=== PATIENT | female | born 1975 | race Caucasian/White ===

== ENCOUNTER 2025-02-06 00:54 | Emergency (ER) | payer MEDICAID ==
[~2025-02-06] VITALS: Ht 180.3 cm; Wt 74.8 kg
[2025-02-06] MEDS ORDERED: HALOPERIDOL LACTATE INJ 5 MG/ML VIAL ONE (01:22)
[2025-02-06] MEDS: HALOPERIDOL LACTATE INJ 5 MG/ML VIAL IM ONE (01:25)
[2025-02-06 03:01] VITALS: BP 130/67; TEMP 98.2; O2SAT 97
== END 2025-02-06 03:02 | disposition home or self-care (01) ==
LOC: ER 01:01
DX: F10.129 Alcohol abuse with intoxication, unspecified (principal); R73.9 Hyperglycemia, unspecified; Y90.9 Presence of alcohol in blood, level not specified
CPT/HCPCS: 99283; 96372; 82962; J1630